=== PATIENT | female | born 1995 | race Caucasian/White ===

== ENCOUNTER 2018-08-07 20:32 | Emergency (ER) | payer SELFPAY ==
[~2018-08-07] VITALS: Ht 172.7 cm; Wt 68.0 kg
[2018-08-07 20:58] VITALS: Ht 172.7 cm; Wt 68.0 kg
[2018-08-07 22:32] VITALS: BP 110/67
== END 2018-08-07 22:32 | disposition home or self-care (01) ==
LOC: ED 20:32
DX: S92.344A Nondisplaced fracture of fourth metatarsal bone, right foot, initial encounter for closed fracture (principal); S00.81XA Abrasion of other part of head, initial encounter; V87.8XXA Person injured in other specified noncollision transport accidents involving motor vehicle (traffic), initial encounter; Y93.I9 Activity, other involving external motion; Y92.413 State road as the place of occurrence of the external cause; Y99.8 Other external cause status
CPT/HCPCS: J1885